=== PATIENT | male | born 1955 | race Hispanic/Latino ===

== ENCOUNTER 2021-01-14 07:23 | Emergency (ER) | payer OTHER ==
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
[2021-01-14] MEDS ORDERED: NA CHLORIDE 0.9% 1,000 ML ONE (08:48)
[2021-01-14] MEDS ORDERED: ACETAMINOPHEN 325 MG TABLET ONE (09:05)
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
[2021-01-14 10:16] VITALS: O2SAT 100
[2021-01-14 10:18] VITALS: TEMP 98
[2021-01-14 10:19] VITALS: BP 132/74
== END 2021-01-14 09:42 | disposition home or self-care (01) ==
LOC: ER 07:23
DX: S16.1XXA Strain of muscle, fascia and tendon at neck level, initial encounter (principal); S50.02XA Contusion of left elbow, initial encounter; V49.40XA Driver injured in collision with unspecified motor vehicles in traffic accident, initial encounter
CPT/HCPCS: 96361; 82565; 70450; 72125; 71260; 74177; 73080; 96360; 99285; Q9967; J7030